=== PATIENT | female | born 1965 | race Caucasian/White ===

== ENCOUNTER → 2016-11-18 | Outpatient (CLI) | payer OTHER ==
--- NOTE | 2016-11-19 11:09 | DI ---
CT BONE DENSITOMETRY OF THE SPINE AND HIP, 11/18/2016 8:29 AM : Clinical History: Screening. Morbid obesity with a BMI of 50.0-59.9. Previous Exam: None at this facility. 3D Quantitative CT (QCT) Bone Mineral Densitometry: The [place] scans are normal. Low dose scans are sampled through the midbodies of L1 and L2. Average bone mineral density (BMD) is 129.6 mg/mL corresponding to a volumetric T-score of -1.5, and Z-score of -0.2. The [employer]'s (ACR) volumetric QCT BMD conversion table categorizes th is patient as having normal bone mineral density of the lumbar spine. CT X-Ray Absorptiometry (CTXA) Bone Mineral Densitometry of the Left Hip: Total hip BMD: 754 mg/cm2 T-score: -1.4 Z-score: -1.0 Femoral neck BMD: 589 mg/cm2 T-score: -1.8 Z-score: -1.2 Note: T-scores of the spine and hip are discordant approximately 40% of the times. Changes in actual QCT or CTXA/DEXA measurements are more reliable in assessment of change in BMD status rather than leopoldo nges in T-scores. READIN. The QCT lumbar spine BMD value by ACR's 3D volumetric to 2D areal conversion categorizes this pat ient as having normal bone mineral density of the lumbar spine. The QCT spine T-score is -1.5, indica ting there is osteopenia of the lumbar spine. 2. The CTXA total hip and femoral neck BMD T-scores are -0.4 and -1.8, respectively. The left total hip T-score indicates this patient has osteopenia of the total hip.
== END ==
LOC: CT 08:19
PROVIDERS: ATTEND Student in an Organized Health Care Education/Training Program
DX: Z13.820 Encounter for screening for osteoporosis (principal); Z68.43 Body mass index [BMI] 50.0-59.9, adult
CPT/HCPCS: 77078

== ENCOUNTER → 2017-02-12 | Outpatient (CLI) | payer OTHER ==
[2017-02-12 12:03] LABS: HEMOGLOBIN 14.8 g/dL (12.0-16.0); MEAN CORPUSCULAR HEMOGLOBIN 26.3 PG (27-31); MEAN CORPUSCULAR HGB CONC 32.2 g/dL (33-37); MEAN CORPUSCULAR VOLUME 81.7 FL (81-99); MEAN PLATELET VOLUME 10.7 FL (7.4-12.2); RED BLOOD COUNT 5.63 10^6/uL (4.20-5.40)
[2017-02-12 12:27] LABS: BLOOD UREA NITROGEN 14 mg/dL (7-22); CALCIUM 9.4 mg/dL (8.7-10.7); EST GLOMERULAR FILTRATION > 60 (>60 ml/min/1.73m(2))
[2017-02-12 16:26] LABS: FREE T4 (FREE THYROXINE) 1.25 ng/dL (0.93-1.71)
== END ==
LOC: MOB LAB 08:45
PROVIDERS: ATTEND Student in an Organized Health Care Education/Training Program
DX: E78.5 Hyperlipidemia, unspecified (principal); I10 Essential (primary) hypertension; E03.9 Hypothyroidism, unspecified; R60.0 Localized edema; Z68.43 Body mass index [BMI] 50.0-59.9, adult; K76.0 Fatty (change of) liver, not elsewhere classified
CPT/HCPCS: 36415; 80053; 83880; 84439; 84443; 85027

== ENCOUNTER → 2017-03-10 | Outpatient (CLI) | payer OTHER | LOC: US 07:22 | PROVIDERS: ATTEND Student in an Organized Health Care Education/Training Program | DX: R60.0 Localized edema (principal); R79.89 Other specified abnormal findings of blood chemistry | CPT/HCPCS: 93306 ==